=== PATIENT | female | born 1985 | race African-American/Black ===

== ENCOUNTER 2017-01-21 11:57 | Emergency (ER) | payer MEDICAID ==
[~2017-01-21] VITALS: Ht 160 cm; Wt 50.0 kg
[~2017-01-21 11:57] MED LIST: HYDR-3511 PO; OXYC20TA41 PO
[2017-01-21 13:11] VITALS: BP 118/70
== END 2017-01-21 14:00 | disposition left against medical advice (07) ==
LOC: ER 12:55
DX: Z48.01 Encounter for change or removal of surgical wound dressing (principal)
CPT/HCPCS: 99281; Z7610

== ENCOUNTER 2017-05-16 00:42 | Inpatient (IN) | payer MEDICAID ==
[~2017-05-16] VITALS: Ht 162.6 cm; Wt 53.2 kg
[2017-05-16] MEDS ORDERED: ONDANSETRON HCL 4MG/2ML VIAL IV STA (02:45)
[2017-05-16] MEDS ORDERED: MORPHINE SULFATE 4 MG/ML CPJ (NOT FOR IM USE) IV STA (02:45)
[2017-05-16] MEDS ORDERED: SODIUM CHLORIDE 0.9% 1,000 ML IV ONE (02:45)
[2017-05-16 03:11] LABS: BASOPHILS % 0.6 % (0.0-2.0); EOSINOPHILS % 1.1 % (0.0-5.0); HEMATOCRIT. 29.3 % (36.0-48.0); HEMOGLOBIN. 9.4 g/dL (12.0-16.0); LYMPHOCYTES % 36.4 % (20.0-50.0); MEAN CORPUSCULAR HEMOGLOBIN 23.3 pg (28.0-32.0); MEAN CORPUSCULAR VOLUME 72.9 fL (81.0-99.0); MONOCYTES % 3.7 % (2.0-8.0); NEUTROPHILS % 58.2 % (40.0-76.0); PLATELET 407 x1000/uL (130-400); RED BLOOD CELL COUNT 4.02 mill/uL (4.2-5.4); RED CELL DISTRIBUTION WIDTH 18.6 % (11.6-14.6)
[2017-05-16 03:14] LABS: CHLORIDE 109 mEq/L (98-107)
[2017-05-16] MEDS ORDERED: DIPHENHYDRAMINE 50MG/ML VIAL IV ONE (03:15)
[2017-05-16] MEDS ORDERED: KETOROLAC 30MG/ML VIAL ONE (04:45)
[2017-05-16] MEDS ORDERED: KETOROLAC 30MG/ML VIAL IV ONE (04:45)
[2017-05-16 04:50] LABS: CLARITY URINE CLOUDY (CLEAR); COLOR URINE YELLOW (YELLOW); KETONES URINE NEGATIVE (NEGATIVE); LEUKOCYTE ESTERASE URINE 2+ (NEGATIVE); NITRITE URINE NEGATIVE (NEGATIVE); OCCULT BLOOD URINE 2+ (NEGATIVE); PH URINE 5.5 (4.5-8.0); PROTEIN URINE 1+ (NEGATIVE); SPECIFIC GRAVITY URINE 1.029 (1.005-1.030); UROBILINOGEN URINE 0.2 E.U./dL (0.2-1.0)
[2017-05-16 08:00] VITALS: BP 120/58
[2017-05-16] MEDS ORDERED: IPRATROPIUM/ALBUTEROL 0.5-3(2.5)MG/3ML NEB INH PRN (11:30)
[2017-05-16] MEDS ORDERED: ONDANSETRON HCL 4MG/2ML VIAL IV PRN (11:30)
[2017-05-16] MEDS ORDERED: ACETAMINOPHEN 325MG TABLET PO PRN (11:30)
[2017-05-16] MEDS ORDERED: MORPHINE SULFATE 4 MG/ML CPJ (NOT FOR IM USE) IV PRN (11:30)
[2017-05-16] MEDS ORDERED: CLONIDINE 0.1MG TABLET PO PRN (11:30)
[2017-05-16] MEDS ORDERED: DEXT 5%/0.45% NACL KCL 20MEQ/L 1,000 ML IV SCH (14:00)
[2017-05-16] MEDS ORDERED: CEFTRIAXONE 1 G PREMIX 50 ML IV SCH (14:00)
[2017-05-17] MEDS ORDERED: PANTOPRAZOLE SODIUM 40 MG/VIAL IV SCH (09:00)
[2017-05-21] MEDS ORDERED: METR500T PO (20:17)
[2017-05-21] MEDS ORDERED: CIPR-263 PO (20:17)
[2017-05-26] MEDS ORDERED: HYDR-4001 PO (11:17)
[2017-05-26] MEDS ORDERED: DOCU-138 PO (11:17)
== END 2017-05-16 08:40 | disposition left against medical advice (07) | DRG 251 ==
LOC: ER 00:42 → 6EST 04:32 → ENRESERV 07:23
PROVIDERS: ADMIT Internal Medicine; ATTEND Internal Medicine
DX: R10.9 Unspecified abdominal pain (principal); K50.90 Crohn's disease, unspecified, without complications; F41.9 Anxiety disorder, unspecified; Z53.21 Procedure and treatment not carried out due to patient leaving prior to being seen by health care provider; Z88.0 Allergy status to penicillin; Z88.2 Allergy status to sulfonamides; Z79.899 Other long term (current) drug therapy; Z90.49 Acquired absence of other specified parts of digestive tract
CPT/HCPCS: 36415; 80053; 81003; 83605; 83690; 85025; 87086; 96361; 96374; 96375; 99285; J0696; J1200; J1885; J2270; J2405; J7030

== ENCOUNTER 2017-05-27 20:00 | Emergency (ER) | payer MEDICAID ==
[~2017-05-27] VITALS: Ht 162.6 cm; Wt 50.0 kg
[~2017-05-27 20:00] MED LIST changes: +DOCU-138 PO; -HYDR-3511 PO; +HYDR-4001 PO; -OXYC20TA41 PO
[2017-05-27] MEDS ORDERED: KETOROLAC 30MG/ML VIAL IV STA (21:19)
[2017-05-27] MEDS ORDERED: SODIUM CHLORIDE 0.9% 1,000 ML IV ONE (21:19)
[2017-05-27 21:42] LABS: CLARITY URINE CLOUDY (CLEAR); COLOR URINE YELLOW (YELLOW); KETONES URINE 1+ (NEGATIVE); LEUKOCYTE ESTERASE URINE TRACE (NEGATIVE); NITRITE URINE NEGATIVE (NEGATIVE); OCCULT BLOOD URINE 3+ (NEGATIVE); PROTEIN URINE 1+ (NEGATIVE); SPECIFIC GRAVITY URINE 1.023 (1.005-1.030); UROBILINOGEN URINE 0.2 E.U./dL (0.2-1.0)
[2017-05-27 21:52] LABS: BASOPHILS % 0.3 % (0.0-2.0); EOSINOPHILS % 0.2 % (0.0-5.0); HEMOGLOBIN. 9.9 g/dL (12.0-16.0); LYMPHOCYTES % 15.3 % (20.0-50.0); MEAN CORPUSCULAR VOLUME 72.2 fL (81.0-99.0); MEAN PLATELET VOLUME 6.9 fl (7.4-10.4); NEUTROPHILS % 78.2 % (40.0-76.0); PLATELET 395 x1000/uL (130-400); RED CELL DISTRIBUTION WIDTH 18.6 % (11.6-14.6)
[2017-05-27 21:57] LABS: CHLORIDE 100 mEq/L (98-107)
[2017-05-27 22:00] LABS: INR 1.2; PROTHROMBIN TIME 12.2 sec (9.4-11.6)
[2017-05-27] MEDS ORDERED: MORPHINE SULFATE 4 MG/ML CPJ (NOT FOR IM USE) IV ONE (22:15)
[2017-05-27] MEDS ORDERED: MORPHINE SULFATE 10 MG/ML CPJ IM ONE (22:30)
[2017-05-27] MEDS ORDERED: DIPHENHYDRAMINE 50MG/ML VIAL IV ONE (23:45)
[2017-05-28] MEDS ORDERED: LORAZEPAM 0.5MG TABLET PO ONE (03:45)
[2017-05-28 04:00] VITALS: BP 154/99
== END 2017-05-28 04:00 | disposition home or self-care (01) ==
LOC: ER 20:00
DX: R06.02 Shortness of breath (principal); R10.9 Unspecified abdominal pain; K50.90 Crohn's disease, unspecified, without complications; J45.909 Unspecified asthma, uncomplicated; Z88.0 Allergy status to penicillin; Z88.2 Allergy status to sulfonamides; Z90.49 Acquired absence of other specified parts of digestive tract; Z98.890 Other specified postprocedural states
CPT/HCPCS: 36415; 74176; 78580; 80053; 81003; 81025; 83605; 85025; 85379; 85610; 87040; 96361; 96372; 96374; 99285; A9540; J1200; J2270; J7030; Z7610

== ENCOUNTER 2023-04-21 18:33 | Emergency (ER) | payer MEDICAID, OTHER ==
[~2023-04-21] VITALS: Ht 162.6 cm; Wt 63.0 kg
[2023-04-21 18:35] VITALS: O2SAT 99
[2023-04-21] MEDS ORDERED: LIDOCAINE HCL 1% 20ML VIAL (Pyxis) INJ INFIL ONE (18:45)
[2023-04-21] MEDS ORDERED: KEPP500 MT (20:47)
[2023-04-21] MEDS: LEVETIRACETAM 500MG TABLET PO ONE (21:22)
[2023-04-21] MEDS: IBUPROFEN 600MG TABLET PO ONE (21:22)
[2023-04-21 22:36] VITALS: BP 116/63; PULSE 103; RESP 16; TEMP 98.4
== END 2023-04-21 22:37 | disposition home or self-care (01) ==
LOC: ER 18:33
DX: S01.511A Laceration without foreign body of lip, initial encounter (principal); J45.909 Unspecified asthma, uncomplicated; I10 Essential (primary) hypertension; Z88.0 Allergy status to penicillin; W18.39XA Other fall on same level, initial encounter; Y93.89 Activity, other specified; Y92.89 Other specified places as the place of occurrence of the external cause; Y99.8 Other external cause status
CPT/HCPCS: 70450; 12013; 99284; Z7610; J3490